=== PATIENT | male | born 1960 | race Two or more races ===

== ENCOUNTER → 2018-04-20 | Emergency (ER) | payer OTHER ==
[~2018-04-20] VITALS: Ht 167.6 cm; Wt 70.3 kg
[~2018-04-20] MED LIST: CRESTOR20 MG; DESCOVY 200-251 EACH; INTELENCE200 MG; ISENTRESS400 MG
== END | disposition home or self-care (01) ==
LOC: ER 16:33
DX: S81.812A Laceration without foreign body, left lower leg, initial encounter (principal); W45.8XXA Other foreign body or object entering through skin, initial encounter; Y93.89 Activity, other specified; Y92.89 Other specified places as the place of occurrence of the external cause; Y99.8 Other external cause status